=== PATIENT | male | born 1990 | race Caucasian/White ===

== ENCOUNTER 2022-07-14 17:30 | Emergency (ER) | payer OTHER ==
[~2022-07-14] VITALS: Ht 175.3 cm; Wt 65.8 kg
--- NOTE | 2022-07-14 17:30 | NUR ---
RECEIVED PT 31 YRS MALE CAME BY PRMDIC ALOC POSSIBLE OD AWAKE AND ALERT RESPIRATION SPONT AND EASY
--- NOTE | 2022-07-14 17:37 | NUR ---
FRITZ LEW (EX-PARTNER)- [phone].
--- NOTE | 2022-07-14 18:00 | NUR ---
AWAKE AND ALERT NO WEEKNESS
[2022-07-14] MEDS ORDERED: NALO4SPR BNOSTRILS (18:39)
--- NOTE | 2022-07-14 19:00 | NUR ---
pt fully awake and alert WALKING WITH STADY GAit d/c instraction given to pt fully and verblized understood D/C HOME STABLE condition with RX
[2022-07-14 19:13] VITALS: BP 115/60
== END 2022-07-14 19:14 | disposition home or self-care (01) ==
LOC: ER 17:33
DX: T40.411A Poisoning by fentanyl or fentanyl analogs, accidental (unintentional), initial encounter (principal); Y92.89 Other specified places as the place of occurrence of the external cause